=== PATIENT | male | born 1980 | race Caucasian/White ===

== ENCOUNTER 2019-08-09 23:01 | Emergency (ER) | payer MEDICAID ==
[~2019-08-09] VITALS: Ht 182.9 cm; Wt 94.1 kg
[2019-08-09 23:08] VITALS: Ht 182.9 cm; Wt 94.1 kg
[2019-08-09] MEDS ORDERED: CLARITIN 10 MG10 MG PO (23:09)
[2019-08-09] MEDS ORDERED: PEPCID AC20 MG PO (23:09)
[2019-08-09] MEDS ORDERED: ALLERGY SHOTS (23:10)
[2019-08-09 23:25] LABS: HEMATOCRIT 43.9 % (42.0-54.0); HEMOGLOBIN 14.8 g/dL (13.5-17.5); LYMPHOCYTES 43.1 % (15-50); MCHC 33.7 g/dL (31.0-37.0); MEAN PLATELET VOLUME 9.1 fL (7.4-10.4); NEUTROPHILS 52.1 % (40-80); PLATELET COUNT 358 10x3/uL (130-400); RBC 4.93 10x6/uL (4.20-6.10); RDW 13.1 % (11.5-14.5)
[2019-08-09 23:34] LABS: APTT 26.4 SECONDS (22.8-39.4); INR 0.94 (0.85-1.17); PROTIME 12.6 SECONDS (11.6-15.0)
[2019-08-09 23:47] LABS: ALBUMIN 4.3 g/dL (3.4-5.0); ALKALINE PHOSPHATASE 66 U/L (30-120); ALT (SGPT) 37 U/L (10-68); BILIRUBIN - TOTAL 0.47 mg/dL (0.2-1.3); CALC OSMOLALITY 271 mosm/kg (275-300); CALCIUM 9.1 mg/dL (8.5-10.1); CARBON DIOXIDE 25.8 mmol/L (21.0-32.0); CHLORIDE - SERUM 102 mmol/L (98-107); CKMB 2.8 U/L (0.0-3.6); CREATINE KINASE 289 UL (21-232); GLUCOSE 96 mg/dL (74-106); MAGNESIUM - SERUM 2.1 mg/dL (1.8-2.4); PROTEIN - SERUM 8.4 g/dL (6.4-8.2); SODIUM 135 mmol/L (136-145); TROPONIN-I < 0.017 ng/mL (0.000-0.060); UREA NITROGEN 17 mg/dL (7-18); eGFR NON AFRICAN AMERICAN 89 mL/min (90-120)
[2019-08-09 23:48] LABS: POTASSIUM - SERUM 4.1 mmol/L (3.5-5.1)
[2019-08-10 01:55] LABS: BILIRUBIN NEGATIVE (NEGATIVE); GLUCOSE NEGATIVE (NEGATIVE); KETONE NEGATIVE (NEGATIVE); NITRITE NEGATIVE (NEGATIVE); UROBILINOGEN NORMAL (NORMAL)
[2019-08-10] MEDS ORDERED: IBUPROFEN800 MG PO (03:24)
[2019-08-10] MEDS ORDERED: CYCLOBENZAPRINE10 MG PO (03:24)
[2019-08-10] MEDS ORDERED: ACETAMINOPHEN500 M1 PO (03:24)
[2019-08-10 03:43] VITALS: BP 126/90
== END 2019-08-10 03:44 | disposition home or self-care (01) ==
LOC: D.ER 23:01
PROVIDERS: Family Medicine
DX: R07.9 Chest pain, unspecified (principal); M79.18 Myalgia, other site

== ENCOUNTER 2020-09-29 13:29 | Emergency (ER) | payer BC ==
[~2020-09-29] VITALS: Ht 182.9 cm; Wt 89.1 kg
[~2020-09-29 13:29] MED LIST: ACETAMINOPHEN500 M1 PO; ALLERGY SHOTS; CLARITIN 10 MG10 MG PO; CYCLOBENZAPRINE10 MG PO; IBUPROFEN800 MG PO; PEPCID AC20 MG PO
[2020-09-29 13:38] VITALS: BP 123/83; Ht 182.9 cm; Wt 89.1 kg
[2020-09-29] MEDS ORDERED: MEDROL DOSE PACK4 MG PO (17:06)
[2020-09-29] MEDS ORDERED: AUGMENTIN 875-11 TAB PO (17:06)
== END 2020-09-29 17:47 | disposition home or self-care (01) ==
LOC: D.ER 13:29
DX: R51.9 Headache, unspecified (principal); J32.9 Chronic sinusitis, unspecified; K21.9 Gastro-esophageal reflux disease without esophagitis